=== PATIENT | male | born 1940 | race Caucasian/White ===

== ENCOUNTER 2021-05-08 09:48 | Inpatient (IN) | payer MEDICAID ==
[~2021-05-08] VITALS: Ht 180.3 cm; Wt 51.7 kg
[2021-05-08 11:11] LABS: BASOPHILS % 0.5 % (0.0-2.0); EOSINOPHILS % 4.4 % (0.0-5.0); HEMATOCRIT. 32.8 % (42.0-52.0); HEMOGLOBIN. 11.1 g/dL (14.0-18.0); LYMPHOCYTES % 9.8 % (20.0-50.0); MEAN CORPUSCULAR HEMOGLOBIN 29.9 pg (28.0-32.0); MEAN CORPUSCULAR VOLUME 88.3 fL (80.0-94.0); MEAN PLATELET VOLUME 7.7 fl (7.4-10.4); MONOCYTES % 5.3 % (2.0-8.0); PLATELET 178 x1000/uL (130-400); RED BLOOD CELL COUNT 3.72 mill/uL (4.7-6.1); RED CELL DISTRIBUTION WIDTH 13.9 % (11.6-14.6)
[2021-05-08 11:15] LABS: CHLORIDE 107 mEq/L (98-107)
[2021-05-08] MEDS ORDERED: DEXTROSE 50% WATER 50ML SYRINGE IV NR (13:30)
[2021-05-08] MEDS ORDERED: ASPIRIN 81MG TABLET PO NR (13:45)
[2021-05-08] MEDS ORDERED: DIPHENHYDRAMINE 50MG/ML VIAL IV PRN (18:30)
[2021-05-08] MEDS ORDERED: ACETAMINOPHEN 650MG/20.3ML UDC GT PRN ×2 (18:30)
[2021-05-08] MEDS ORDERED: NA PHOS,M-B/NA PHOS,DI-BA ENEMA 118ML PR PRN (18:30)
[2021-05-08] MEDS ORDERED: MAGNESIUM/ALUMINUM HYDROXIDE/SIMETHICONE 30ML UDC PO PRN (18:30)
[2021-05-08] MEDS: DEXT 5%/0.45% NACL 1000ML 1,000 ML IV SCH (18:47)
[2021-05-08 21:00] VITALS: BP 128/65
[2021-05-08 23:39] LABS: CREATINE KINASE MB FRACTION 8.9 ng/mL (0.5-3.6)
[2021-05-09] VITALS: BP 104/50
[2021-05-09] MEDS ORDERED: DEXTROSE 50% WATER 50ML SYRINGE IV PRN
[2021-05-09] MEDS ORDERED: ATOR20TA65 PO (02:04)
[2021-05-09] MEDS ORDERED: GLIP5TAB12 PO (02:04)
[2021-05-09] MEDS ORDERED: METF-874 PO (02:04)
[2021-05-09] MEDS ORDERED: LEVVL SQ (02:04)
[2021-05-09] MEDS ORDERED: INSU100C6 SQ (02:04)
[2021-05-09 04:00] VITALS: BP 130/52
[2021-05-09] MEDS: BLOOD SUGAR DIAGNOSTIC STRIP TEST SCH ×4 (06:36→21:23)
[2021-05-09 08:00] VITALS: BP 119/51
[2021-05-09] MEDS: DEXT 5%/0.45% NACL 1000ML 1,000 ML IV SCH ×2 (08:43→22:05)
[2021-05-09] MEDS: INSULIN LISPRO 100 UNITS/ML SUBCUT SCH ×4 (08:44→22:00)
[2021-05-09 10:30] LABS: CLARITY URINE CLEAR (CLEAR); COLOR URINE YELLOW (YELLOW); KETONES URINE NEGATIVE (NEGATIVE); LEUKOCYTE ESTERASE URINE NEGATIVE (NEGATIVE); NITRITE URINE NEGATIVE (NEGATIVE); OCCULT BLOOD URINE 1+ (NEGATIVE); PH URINE 6.5 (4.5-8.0); PROTEIN URINE TRACE (NEGATIVE); SPECIFIC GRAVITY URINE 1.012 (1.005-1.030); UROBILINOGEN URINE 0.2 E.U./dL (0.2-1.0)
[2021-05-09 12:00] VITALS: BP 128/55
[2021-05-09 15:29] LABS: HEMATOCRIT. 31.1 % (42.0-52.0); HEMOGLOBIN. 10.6 g/dL (14.0-18.0); MEAN CORPUSCULAR HEMOGLOBIN 29.8 pg (28.0-32.0); MEAN CORPUSCULAR VOLUME 87.5 fL (80.0-94.0); MEAN PLATELET VOLUME 7.8 fl (7.4-10.4); PLATELET 160 x1000/uL (130-400); RED BLOOD CELL COUNT 3.56 mill/uL (4.7-6.1); RED CELL DISTRIBUTION WIDTH 13.9 % (11.6-14.6)
[2021-05-09 15:39] LABS: CHLORIDE 104 mEq/L (98-107)
[2021-05-09 15:50] LABS: CREATINE KINASE MB FRACTION 4.5 ng/mL (0.5-3.6)
[2021-05-09 16:03] VITALS: BP 114/57
[2021-05-09 16:03] LABS: CREATINE KINASE 368 IU/L (39-308); HDL CHOLESTEROL 42 mg/dL (40-59); LDL CHOLESTEROL 52 mg/dL (5-100)
[2021-05-09 17:27] LABS: PLATELET ESTIMATE NORMAL
[2021-05-09 20:00] VITALS: BP 116/56
[2021-05-10] VITALS: BP 100/55
[2021-05-10 04:00] VITALS: BP 102/55
[2021-05-10 06:30] LABS: PROTHROMBIN TIME 10.9 sec (9.6-11.0)
[2021-05-10] MEDS: BLOOD SUGAR DIAGNOSTIC STRIP TEST SCH ×4 (06:33→21:12)
[2021-05-10 06:39] LABS: HEMATOCRIT. 32.7 % (42.0-52.0); HEMOGLOBIN. 11.2 g/dL (14.0-18.0); MEAN CORPUSCULAR HEMOGLOBIN 30.1 pg (28.0-32.0); MEAN CORPUSCULAR VOLUME 87.9 fL (80.0-94.0); MEAN PLATELET VOLUME 8.1 fl (7.4-10.4); PLATELET 160 x1000/uL (130-400); RED BLOOD CELL COUNT 3.72 mill/uL (4.7-6.1); RED CELL DISTRIBUTION WIDTH 13.5 % (11.6-14.6)
[2021-05-10 07:23] LABS: CHLORIDE 109 mEq/L (98-107)
[2021-05-10 07:31] LABS: TOTAL IRON BINDING CAPACITY 236 ug/dL (250-450)
[2021-05-10 08:07] VITALS: BP 98/59
[2021-05-10] MEDS: INSULIN LISPRO 100 UNITS/ML SUBCUT SCH ×4 (08:56→21:12)
[2021-05-10] MEDS: DEXT 5%/0.45% NACL 1000ML 1,000 ML IV SCH ×2 (10:30→23:50)
[2021-05-10 12:14] VITALS: BP 99/59
[2021-05-10 16:09] VITALS: BP 128/60
[2021-05-10 17:24] LABS: PLATELET ESTIMATE NORMAL
[2021-05-10 20:00] VITALS: BP 101/56
[2021-05-11] VITALS: BP 117/60
[2021-05-11] MEDS: DEXT 5%/0.45% NACL 1000ML 1,000 ML IV SCH ×2 (03:40→13:10)
[2021-05-11 04:00] VITALS: BP 113/68
[2021-05-11] MEDS: BLOOD SUGAR DIAGNOSTIC STRIP TEST SCH ×2 (06:40→11:44)
[2021-05-11 08:00] VITALS: BP 127/72
[2021-05-11] MEDS: INSULIN LISPRO 100 UNITS/ML SUBCUT SCH ×3 (08:45→13:39)
[2021-05-11 11:49] VITALS: BP 108/63
[2021-05-11 12:10] VITALS: BP 108/63
== END 2021-05-11 15:45 | disposition home or self-care (01) | DRG 144 ==
LOC: ER 10:01 → 6WST 15:07 → ENRESERV 19:35
PROVIDERS: ADMIT Family Medicine; ATTEND Family Medicine
DX: S22.31XA Fracture of one rib, right side, initial encounter for closed fracture (principal); E43 Unspecified severe protein-calorie malnutrition; E11.649 Type 2 diabetes mellitus with hypoglycemia without coma; R07.81 Pleurodynia; D64.9 Anemia, unspecified; I10 Essential (primary) hypertension; M47.812 Spondylosis without myelopathy or radiculopathy, cervical region; Z20.822 Contact with and (suspected) exposure to COVID-19; W18.39XA Other fall on same level, initial encounter; R07.89 Other chest pain; R26.81 Unsteadiness on feet; Z68.1 Body mass index [BMI] 19.9 or less, adult; Y93.89 Activity, other specified; Y92.098 Other place in other non-institutional residence as the place of occurrence of the external cause; Y99.8 Other external cause status; Z79.84 Long term (current) use of oral hypoglycemic drugs; Z79.4 Long term (current) use of insulin; Z79.899 Other long term (current) drug therapy
CPT/HCPCS: 36415; 71045; 71101; 71250; 80048; 80053; 80061; 81003; 82550; 82553; 82962; 83036; 83540; 83550; 83880; 84484; 85025; 87426; 93005; 97162; 97165; 99285; C1893; J1815; J7042